=== PATIENT | male | born 1960 | race Caucasian/White ===

== ENCOUNTER → 2020-02-20 09:43 | Outpatient (REF) | payer OTHER, SELFPAY | LOC: ANHLAB 09:43 | PROVIDERS: PCP Family Medicine; Visit Provider Nurse Practitioner | DX: D22.5 Melanocytic nevi of trunk (principal) | CPT/HCPCS: 88305 ==

== ENCOUNTER 2020-03-20 16:03 | Outpatient (CLI) | payer OTHER, SELFPAY ==
--- NOTE | ~2020-03-20 | CT_ITS ---
EXAMINATION: CT soft tissue neck chest w DATE: 03/20/2020 16:39 INDICATION: Melanoma of overlapping sites. TECHNIQUE: Computed tomography (CT) of the neck and chest was performed with 75 mL Omnipaque-350 intr avenous contrast. Automated exposure control and iterative reconstruction technique were employed. Th e dose-length product was 1091.37 mGy-cm. COMPARISON: CT abdomen and pelvis 08/27/2015, chest CT 09/10/2011 FINDINGS: NECK CT: There are mucous retention cyst in right maxillary sinus. There are no pathologically enlarg ed lymph nodes. There is a 10 mm nodule in right thyroid lobe, likely not clinically significant. The re is plaque in the proximal internal carotid arteries with 0% stenosis relative to normal distal art lise lumen diameters. There is mild cervical spondylosis. CHEST CT: Calcified bilateral lung nodules and calcified hilar and mediastinal lymph nodes are consis tent with old granulomatous disease. There is mild atelectasis bilaterally. No pleural effusion. The heart size is normal. There are coronary artery calcifications. No pericardial effusion. Calcificatio ns in the spleen are consistent with old granulomatous disease. There is mild thoracic spondylosis. IMPRESSION: 1. No evidence of metastatic disease. Reviewed, dictated and finalized at location A.
[2020-03-20 16:27] LABS: Estimated Glomerular Filt Rate > 60
== END 2020-03-20 16:04 | disposition home or self-care (01) ==
PROVIDERS: PCP Family Medicine; Visit Provider Internal Medicine Hematology & Oncology
DX: C43.8 Malignant melanoma of overlapping sites of skin (principal)
CPT/HCPCS: 36415; 70491; 71260; Q9967

== ENCOUNTER 2020-07-20 07:01 | Outpatient (CLI) | payer OTHER, SELFPAY ==
[2020-07-20 07:13] LABS: Basophils Absolute Auto 0.04 K/mm3 (0.00-0.10); Basophils Percent Auto 0.7 % (0.0-1.0); Eosinophils Absolute Auto 0.08 K/mm3 (0.02-0.50); Eosinophils Percent Auto 1.3 % (1.0-6.0); Hematocrit 47.3 % (40.0-54.0); Hemoglobin 16.3 g/dL (14.0-18.0); Immature Granulocyte Absolute 0.01 K/mm3 (0.00-0.00); Immature Granulocyte Percent A 0.2 % (0.0-0.0); Lymphocytes Absolute Auto 2.36 K/mm3 (1.10-4.50); Lymphocytes Percent Auto 39.5 % (18.0-42.0); Mean Corpuscular HGB Conc 34.5 g/dL (32.0-36.0); Mean Corpuscular Hemoglobin 28.8 pg (27.0-31.0); Mean Corpuscular Volume 83.6 fL (78.0-102.0); Mean Platelet Volume 11.3 fl (8.7-11.0); Monocytes Absolute Auto 0.39 K/mm3 (0.10-0.90); Monocytes Percent Auto 6.5 % (2.0-11.0); Neutrophils Absolute Auto 3.1 K/mm3 (1.7-7.2); Neutrophils Percent Auto 51.8 % (50.0-70.0); Platelet Count Result 163 K/mm3 (150-420); Red Blood Count 5.66 M/mm3 (4.70-6.10); Red Cell Distribution Width 12.7 % (11.6-14.4)
[2020-07-20 08:21] LABS: Anion Gap 10 mmol/L (8-16); Blood Urea Nitrogen 13 mg/dL (7-18); Calcium 8.9 mg/dL (8.5-10.1); Carbon Dioxide 29 mmol/L (21-32); Chloride 102 mmol/L (98-108); Cholesterol 177 mg/dL (0-200); Estimated Glomerular Filt Rate > 60; Glucose 207 mg/dL (70-99); HDL Direct 20 mg/dL (40-60); LDL Cholesterol Calculated 34 mg/dL (<130); Osmolality Calculated 298 mOsm/kg (285-295); Potassium 3.2 mmol/L (3.5-5.1); Sodium 141 mmol/L (136-145); Triglycerides 613 mg/dL (0-150)
[2020-07-20 08:22] LABS: LDL Cholesterol Direct 54 mg/dL (0-130)
== END 2020-07-20 07:02 | disposition home or self-care (01) ==
LOC: CHSLAB 07:03
PROVIDERS: PCP Family Medicine; Visit Provider Family Medicine
DX: E11.9 Type 2 diabetes mellitus without complications (principal); E78.5 Hyperlipidemia, unspecified; E78.1 Pure hyperglyceridemia; I10 Essential (primary) hypertension; E66.9 Obesity, unspecified
CPT/HCPCS: 36415; 80048; 80061; 83721; 85025

== ENCOUNTER 2020-08-14 17:30 | Outpatient (CLI) | payer OTHER, SELFPAY ==
[2020-08-14 18:02] LABS: Hemoglobin A1C 8.6 % (<5.7)
[2020-08-14 18:10] LABS: Alanine Aminotransferase 45 U/L (16-63); Albumin Level 4.1 g/dL (3.4-5.0); Alkaline Phosphatase 70 U/L (46-116); Anion Gap 8 mmol/L (8-16); Aspartate Amino Transferase 11 U/L (15-37); Bilirubin,Total 0.5 mg/dL (0.00-1.00); Blood Urea Nitrogen 19 mg/dL (7-18); Calcium 9.1 mg/dL (8.5-10.1); Carbon Dioxide 32 mmol/L (21-32); Chloride 100 mmol/L (98-108); Cholesterol 126 mg/dL (0-200); Estimated Glomerular Filt Rate > 60; HDL Direct 22 mg/dL (40-60); LDL Cholesterol Calculated 50 mg/dL (<130); Osmolality Calculated 301 mOsm/kg (285-295); Potassium 3.5 mmol/L (3.5-5.1); Sodium 140 mmol/L (136-145); Total Protein 7.6 g/dL (6.4-8.2)
[2020-08-14 18:13] LABS: Glucose 260 mg/dL (70-99); Triglycerides 272 mg/dL (0-150)
== END 2020-08-14 17:31 | disposition home or self-care (01) ==
PROVIDERS: PCP Family Medicine; Visit Provider Family Medicine
DX: E11.9 Type 2 diabetes mellitus without complications (principal)
CPT/HCPCS: 36415; 80053; 80061; 83036

== ENCOUNTER → 2020-08-20 09:19 | Outpatient (REF) | payer OTHER, SELFPAY | LOC: ANHLAB 09:19 | PROVIDERS: PCP Family Medicine; Visit Provider Nurse Practitioner | DX: D49.2 Neoplasm of unspecified behavior of bone, soft tissue, and skin (principal) | CPT/HCPCS: 88305 ==

== ENCOUNTER 2020-11-13 17:21 | Outpatient (CLI) | payer OTHER, SELFPAY | END 2020-11-13 17:22 | disposition home or self-care (01) | LOC: CHSLAB 17:22 | PROVIDERS: PCP Family Medicine; Visit Provider Family Medicine | DX: E78.5 Hyperlipidemia, unspecified (principal); I10 Essential (primary) hypertension; E11.9 Type 2 diabetes mellitus without complications | CPT/HCPCS: 36415; 83036 ==

== ENCOUNTER → 2021-02-25 09:13 | Outpatient (REF) | payer OTHER, SELFPAY | LOC: ANHLAB 09:13 | PROVIDERS: PCP Family Medicine; Visit Provider Nurse Practitioner | DX: D49.2 Neoplasm of unspecified behavior of bone, soft tissue, and skin (principal) | CPT/HCPCS: 88305 ==

== ENCOUNTER 2021-09-22 21:05 | Emergency (ER) | payer OTHER, SELFPAY ==
--- NOTE | ~2021-09-22 | XR_ITS ---
EXAMINATION: XR chest 1V portable INDICATION: Hypoxia TECHNIQUE: Portable AP chest at 2305 hours COMPARISON: None available FINDINGS: There are airspace opacities of the mid and lower lung zones. No pleural effusion or pneumo thorax is identified. The cardiomediastinal silhouette is normal. IMPRESSION: 1. Airspace opacities of the mid and lower lung zones, likely COVID 19 pneumonia. Reviewed, dictated and finalized at location F. MACEUTICAL SALES IMPRESSION: 1. Airspace opacities of the mid and lower lung zones, likely COVID 19 pneumoni a.
--- NOTE | ~2021-09-22 | CT_ITS ---
EXAMINATION: CTA chest PE protocol DATE: 09/23/2021 00:25 INDICATION: Cough and interpreted the breasts, upper back pain TECHNIQUE: Computed tomography angiography (CTA) of the chest was performed with 100 mL Omnipaque-350 intravenous contrast timed to evaluate the pulmonary arteries. Coronal maximum intensity projection 3D-reconstructions were created by the technologist. The dose-length product (DLP) was 797.35 mGy-cm. Automated exposure control and iterative reconstruction technique were employed. COMPARISON: 04/01/2020 FINDINGS: The pulmonary arteries are well-opacified. No pulmonary embolism is identified. There are p atchy groundglass opacities throughout the lungs. There is no pleural effusion or pneumothorax. The h eart size is normal. Mild mediastinal and bilateral hilar lymphadenopathy is likely reactive. There i s mild thoracic spondylosis. There are surgical clips in the right axilla. IMPRESSION: 1. No pulmonary embolus. 2. Patchy groundglass opacities, consistent with COVID 19 pneumonia. Reviewed, dictated and finalized at location F. [employer]OC[employer]ATE
[2021-09-22 22:52] VITALS: BP 156/81; PULSE 79; RESP 20; TEMP 36.6; O2SAT 95
--- NOTE | 2021-09-22 22:54 | ED.URI ---
HPI - URI/Sore Throat General Chief Complaint: Unspecified Stated Complaint: pain in between shoulder blades Source: patient and RN notes reviewed Mode of arrival: ambulatory Limitations: no limitations History of Present Illness HPI Narrative: patient tested positive for COVID 5 days ago. He actually came out of quarantine today and went to work. In the afternoon he began having chills cough and then pain between his shoulder blades. He did the pulse oximeter at home which has been greater than 90%. He denies any shortness of breath or chest pain. Family who is in the medical field suggested he be evaluated. MD elicited complaint: cough and sore throat Onset (ago): day(s) (5) Consistency: intermittent Severity: moderate Able to tolerate fluids by mouth: Yes Exacerbating factors: nothing Relieving factors: nothing Associated symptoms: chills, cough and other ( Pain between shoulder blades) Treatments prior to arrival: none Related Data Allergies Allergy/AdvReac Type Severity Reaction Status Date / Time Penicillins Allergy Unknown Hives Verified 09/02/21 07:54 Review of Systems Review of Systems: All systems reviewed & are unremarkable except as noted in HPI and below PMFSH Past Medical History Medical History (Updated 09/23/21 @ 00:54 by Mele Santos MD) Diabetes Gout History of bladder cancer History of melanoma 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 2011 and March 2017 HTN (hypertension) Hyperlipidemia Hypertriglyceridemia Obesity, unspecified Family History Family History Mother Diabetes mellitus, Onset Age: 79 Hypertension, Onset Age: 79 Family history of cardiovascular disease, Onset Age: 79 Father Family history of malignant neoplasm of urinary bladder, Onset Age: 82 Social History Social History Smoking status: Never smoker Alcohol intake: current Exam Const: General: healthy appearing, no acute distress and alert Nutritional Appearance: well nourished and obese morbidly obese Orientation/consciousness: patient oriented x3 HENMT: Head: normal to inspection Ears: external ears normal Face and sinus: normal facial exam Eyes: Conjunctivae: conjunctivae normal Pupils: Equal, round and reactive pupils present EOM: EOMs intact bilaterally Cardio: Rate: regular rate Rhythm: regular rhythm GI: GI Palp: Yes Soft to palpation and No Tenderness to palpation present (GI) Auscultation: normal bowel sounds Back/Spine/Pelvis: Cervical Spine: cervical ROM normal Thoracic/Lumbar Spine: thoraco-lumbar ROM normal Skin: General skin exam: normal color Rashes: no rashes Neuro: General: patient oriented x3, moves all extremities, no meningeal signs, no focal motor deficits and CN's II-XI intact bilaterally Speech: normal speech Gait exam (Neuro): Normal gait present Extrem: General: normal to inspection and no clubbing, cyanosis or edema Psych: Appearance: grossly normal Mental Status: mental status grossly normal Affect: normal affect Attitude: cooperative Thought content: Yes Normal thought content present Course Vital Signs Vital signs: Vital Signs Temperature 36.6 C 09/22/21 22:52 Pulse Rate 79 09/22/21 22:52 Respiratory Rate 20 09/22/21 22:52 Blood Pressure 156/81 H 09/22/21 22:52 Pulse Oximetry 95 09/22/21 22:52 Temperature 36.6 C 09/22/21 22:52 Pulse Rate 79 09/22/21 22:57 Respiratory Rate 20 09/22/21 22:52 Blood Pressure 156/81 H 09/22/21 22:52 Pulse Oximetry 95 09/22/21 22:52 MDM - URI/Sore Throat Differential Diagnosis Differential diagnosis: Likely upper respiratory infection, bronchitis and influenza Lab Data Attestation: I reviewed the patient's lab results. Result diagrams: 09/22/21 23:17 09/22/21 23:16 Labs: Lab Results 09/22/21 09/22/21 09/22/21 Range/Units 23:16 23:16 23:17 WBC 4.
[2021-09-22 22:57] VITALS: PULSE 79
[2021-09-22 23:24] LABS: Basophils Absolute Auto 0.01 K/mm3 (0.00-0.10); Basophils Percent Auto 0.2 % (0.0-1.0); Eosinophils Absolute Auto 0.02 K/mm3 (0.02-0.50); Eosinophils Percent Auto 0.5 % (1.0-6.0); Hemoglobin 16.2 g/dL (14.0-18.0); Immature Granulocyte Absolute 0.01 K/mm3 (0.00-0.00); Immature Granulocyte Percent A 0.2 % (0.0-0.0); Immature Platelet Fraction Pct 3.4 % (1.0-7.0); Lymphocytes Absolute Auto 0.94 K/mm3 (1.10-4.50); Lymphocytes Percent Auto 23.4 % (18.0-42.0); Mean Corpuscular HGB Conc 33.8 g/dL (32.0-36.0); Mean Corpuscular Hemoglobin 28.7 pg (27.0-31.0); Mean Corpuscular Volume 85.1 fL (78.0-102.0); Mean Platelet Volume 11.5 fl (8.7-11.0); Monocytes Percent Auto 12.5 % (2.0-11.0); Neutrophils Absolute Auto 2.5 K/mm3 (1.7-7.2); Neutrophils Percent Auto 63.2 % (50.0-70.0); Platelet Count Result 127 K/mm3 (150-420); Red Blood Count 5.64 M/mm3 (4.70-6.10); Red Cell Distribution Width 12.6 % (11.6-14.4)
[2021-09-22 23:34] LABS: D Dimer 0.54 mg/L (0.19-0.50)
[2021-09-22 23:46] LABS: Alanine Aminotransferase 30 U/L (16-63); Albumin Level 3.6 g/dL (3.4-5.0); Alkaline Phosphatase 61 U/L (46-116); Anion Gap 13 mmol/L (8-16); Aspartate Amino Transferase 19 U/L (15-37); Bilirubin,Total 0.5 mg/dL (0.00-1.00); Blood Urea Nitrogen 17 mg/dL (7-18); Calcium 8.7 mg/dL (8.5-10.1); Carbon Dioxide 25 mmol/L (21-32); Chloride 99 mmol/L (98-108); Estimated CRCL calculation 81 ml/min; Estimated Glomerular Filt Rate > 60; Ferritin 837 ng/mL (26-388); Glucose 257 mg/dL (70-99); Magnesium 2.2 mg/dL (1.8-2.4); Osmolality Calculated 294 mOsm/kg (285-295); Potassium 3.3 mmol/L (3.5-5.1); Sodium 137 mmol/L (136-145); Total Protein 7.8 g/dL (6.4-8.2)
[2021-09-22 23:55] LABS: Lactic Acid Reflex 1.4 mmol/L (0.4-2.0)
== END 2021-09-23 01:16 | disposition home or self-care (01) ==
PROVIDERS: Emergency Provider Emergency Medicine; PCP Family Medicine
DX: U07.1 COVID-19 (principal); J12.82 Pneumonia due to coronavirus disease 2019
CPT/HCPCS: 36415; 71045; 71275; 80053; 82728; 83605; 83735; 85025; 85055; 85380; 99283; Q9967

== ENCOUNTER 2021-09-24 15:13 | Outpatient (CLI) | payer OTHER, SELFPAY ==
[2021-09-24 15:26] VITALS: BMI 33.6
[2021-09-24 15:43] VITALS: BP 140/70; PULSE 80; RESP 14; TEMP 36.6; O2SAT 94
[2021-09-24] MEDS: diphenhydrAMINE HCl CAP 25 MG CAPSULE PO (15:44)
[2021-09-24] MEDS: ACETAMINOPHEN 325 MG TABLET 650 MG PO (15:44)
[2021-09-24] MEDS: FAMOTIDINE 20 MG TABLET PO (15:45)
--- NOTE | 2021-09-24 16:04 | PC.NURSE ---
Patient here for IV Bamlanivimab and Etesevimab Infusion due to positive for COVID and meeting high risk criteria. Education on medication given. No concerns voiced. PO pre med and IV infusion administered see NOV.
--- NOTE | 2021-09-24 16:47 | PC.NURSE ---
Tolerated infusion well. No s/sx of reaction noted or reported. Safe exit of hospital.
[2021-09-24 16:48] VITALS: BP 150/82; PULSE 80; RESP 18; TEMP 36.4; O2SAT 96
== END 2021-09-24 15:14 | disposition home or self-care (01) ==
LOC: CHSLAB 15:20 → CHSTREATRM 15:21
PROVIDERS: PCP Family Medicine; Visit Provider Emergency Medicine
DX: U07.1 COVID-19 (principal); I10 Essential (primary) hypertension
CPT/HCPCS: A9270; M0245; Q0245

== ENCOUNTER 2021-10-05 09:29 | Emergency (ER) | payer OTHER, SELFPAY ==
--- NOTE | ~2021-10-05 | CT_ITS ---
EXAMINATION: CT pelvis wo con DATE: 10/05/2021 10:26 INDICATION: Left hip pain. Sciatica. TECHNIQUE: Computed tomography (CT) of the pelvis was performed without intravenous contrast. Automat ed exposure control and iterative reconstruction technique were employed. Exam dose: 731.61 mGy-cm t otal exam DLP. COMPARISON: 08/27/2015 CT abdomen pelvis FINDINGS: No pelvic fracture or bone destruction. The pubic symphysis and sacroiliac joints are intac t. There is moderate osteoarthritis at both hip joints. No fracture, dislocation, avascular necrosis or bone destruction of either hip is evident. Normal appendix. IMPRESSION: Moderate bilateral hip osteoarthritis No pelvic fracture or bone destruction Reviewed, dictated and finalized at Location A. Reviewed, dictated and finalized at location A. [employer] C[employer]AR[employer]TER
[2021-10-05 09:35] VITALS: BP 140/100; PULSE 89; RESP 18; TEMP 36.4; O2SAT 98
--- NOTE | 2021-10-05 10:10 | ED.BACK ---
HPI - Back Pain/Injury General Chief Complaint: Back Pain/Injury Stated Complaint: L sided hip/leg pain Time Seen by Provider: 10/05/21 09:33 Source: patient and RN notes reviewed Mode of arrival: ambulatory Limitations: no limitations History of Present Illness MD elicited complaint: back pain and other (radiating to left lower limb) Pertinent past history: prior back pain Onset (ago): day(s) (1) Timing: progressively worsening Severity: moderate Pain scale (0-10): 7 Similar Symptoms Previously: Yes Quality: dull, aching and spasming Location: lumbar spine and left lower back Radiation: left leg below the knee Exacerbating factors: movement Relieving factors: none Context: turning/twisting Associated symptoms: difficulty walking Related Data Allergies Allergy/AdvReac Type Severity Reaction Status Date / Time Penicillins Allergy Unknown Hives Verified 10/05/21 09:51 Review of Systems Review of Systems: All systems reviewed & are unremarkable except as noted in HPI and below Musculoskeletal: Musculoskeletal: Reports back pain PMFSH Past Medical History Medical History Diabetes Gout History of bladder cancer History of melanoma 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 2011 and March 2017 HTN (hypertension) Hyperlipidemia Hypertriglyceridemia Obesity, unspecified Family History Family History Mother Diabetes mellitus, Onset Age: 79 Hypertension, Onset Age: 79 Family history of cardiovascular disease, Onset Age: 79 Father Family history of malignant neoplasm of urinary bladder, Onset Age: 82 Social History Social History Smoking status: Never smoker Alcohol intake: current Exam Const: General: no acute distress and alert Nutritional Appearance: well nourished Orientation/consciousness: patient oriented x3 Limitations: no limitations HENMT: Head: normal to inspection Ears: external ears normal and TM's normal bilaterally General nose exam: Normal external nose present and Normal nares present Mouth: Yes moist mucous membranes Eyes: Conjunctivae: conjunctivae normal Pupils: Equal, round and reactive pupils present EOM: EOMs intact bilaterally Neck: Neck: normal visual inspection Chest: Chest palpation & inspection: normal inspection of the chest Resp: Effort & Inspection: normal respiratory effort Auscultation: clear to auscultation bilaterally Cardio: Rate: regular rate Rhythm: regular rhythm GI: GI Palp: Yes Soft to palpation and No Tenderness to palpation present (GI) Auscultation: normal bowel sounds : General: Yes bladder normal to palpation and Yes no CVA tenderness Male General Exam: Yes normal external exam Testes: Testes normal Back/Spine/Pelvis: Back: no CVA tenderness Skin: General skin exam: normal color Rashes: no rashes Neuro: General: patient oriented x3, moves all extremities, no meningeal signs, no focal motor deficits and CN's II-XI intact bilaterally Extrem: General: normal to inspection and no pedal edema Other: minimally tender left buttock on deep palpation, full ROM of the left lower limb. Psych: Appearance: grossly normal and well kempt Mental Status: mental status grossly normal Affect: normal affect Attitude: cooperative Thought content: Yes Normal thought content present Course Course Emergency Course: Pt had less pain and was stable in the ED Reevaluation(s) Reevaluation #1: left lower back to left lower limb pain was lessened. Date: 10/05/21 Time: 10:25 Vital Signs Vital signs: Vital Signs Temperature 36.4 C 10/05/21 09:35 Pulse Rate 89 10/05/21 09:35 Respiratory Rate 18 10/05/21 09:35 Blood Pressure 140/100 H 10/05/21 09:35 Pulse Oximetry 98 10/05/21 09:35 Temperature 36.4 C 10/05/21 09:35 Pulse Rate 71 10/05/21 11:12 Respiratory Rate 18 10/05/21
[2021-10-05] MEDS: KETOROLAC (*BKC) 60 MG/2 ML VIAL IM (10:30)
[2021-10-05 11:12] VITALS: BP 141/76; PULSE 71; RESP 18; O2SAT 96
== END 2021-10-05 11:05 | disposition home or self-care (01) ==
PROVIDERS: Emergency Provider Emergency Medicine; PCP Family Medicine
DX: M54.32 Sciatica, left side (principal)
CPT/HCPCS: 72192; 96372; 99283; 99284; J1885

== ENCOUNTER 2021-10-07 10:33 | Outpatient (RCR) | payer OTHER, SELFPAY ==
--- NOTE | 2021-10-07 11:48 | PTOPEVAL ---
Thank you for referring Ketan Stanton to [facility].? The patient is scheduled to be seen for therapy? ____x/week for ___ weeks. Please review, sign, date and return this plan of care STEPHANIE. I agree with and certify that the following plan of care is medically necessary. Referring Physician Date Admitting Provider: Attending Provider: Alfredo Vicente DO Referring Provider: *PT Outpatient Evaluation Start: 10/07/21 10:46 Freq: Status: Active Protocol: Document 10/07/21 10:46 ACR (Rec: 10/07/21 11:47 ACR [id number]) Therapy Assessment Status Assessment Status Assessment Status Evaluation Outpatient Past Medical History Cardiovascular History Hx Hypercholesterolemia Yes Endocrine History Hx Diabetes Yes Other History Hx Cancer Yes: bladder tumor Evaluation Information Problem Diagnosis dorsalgia Onset 09/23/20 Subjective Information Patient states that he had Query Text:As Reported By Patient/ COVID-19 3 weeks ago and the Family MD told him this could be the cause of the back pain. 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 He states that he went to the ED and got a shot in the buttock region and then went to see his MD and changed his medication around which did not help much. He states that laying down, walking, and standing are okay, but sitting is awful for him. Patient states that he has difficulty with steps because anytime he puts weight through the LLE it causes pain. The patient states that the pain is in the L side, into the hip and and down the back of the thigh and occasionally to the foot. Patient states that when he drives he has stop and stretch his leg if in the car for more than 10-15 minutes. Patient state that his goal for therapy is to get back to work. Prior Level of Function Activity Level (Last 3 Months)
--- NOTE | 2021-10-13 10:46 | PTOPEVAL ---
Thank you for referring Ketan Stanton to [facility][Note 3[facility]? The patient is scheduled to be seen for therapy? ____x/week for ___ weeks. Please review, sign, date and return this plan of care STEPHANIE. I agree with and certify that the following plan of care is medically necessary. Referring Physician Date Admitting Provider: Attending Provider: Alfredo Vicente DO Referring Provider: *PT Outpatient Evaluation Start: 10/07/21 10:46 Freq: Status: Active Protocol: Document 10/13/21 09:09 ACR (Rec: 10/13/21 10:46 ACR [id number]) Therapy Assessment Status Assessment Status Assessment Status Progress Outpatient Past Medical History Cardiovascular History Hx Hypercholesterolemia Yes Endocrine History Hx Diabetes Yes Other History Hx Cancer Yes: bladder tumor Evaluation Information Problem Diagnosis dorsalgia, dizziness Onset 09/23/20 Subjective Information Patient presents to therapy Query Text:As Reported By Patient/ with a new order for dizziness Family after having vertigo like symptoms over the weekend. He states he got up Wednesday morning and was really dizzy and got sick. He states he looked up what to do and did a maneuver which helped him a little bit, but he really only gets relief when he lays on his R side. He states that he thinks it could be from his COVID infusion on 09/24/21. He states that he really wants to get back to work, but has the week off to figure out his dizziness. Pain Assessment Timing of Pain Assessment Timing of Pain Assessment Pre-Treatment Pain Scale Pain Scale Used Numeric (1 - 10) Self Report Pain Assessment Left Hip(s) Reported Pain Level 8 Pain Score Pain Score 8: Self Report Interventions Used Interventions Used By Clinicians Activity or ADL's,Exercise Palpation Assessment Palpation Palpation Performed [place] on patient where he had a positive L and negative R. The patient was then educated on the Ranjith Maneuver to address this. General Exercise General Exercises Exercise Description - Ranjith maneuver for L ear x 3 Query Text:Record Sets, Reps, , billy
--- NOTE | 2021-10-24 10:01 | PTOPEVAL ---
Thank you for referring Ketan Stanton to [facility].? The patient is scheduled to be seen for therapy? ____x/week for ___ weeks. Please review, sign, date and return this plan of care STEPHANIE. I agree with and certify that the following plan of care is medically necessary. Referring Physician Date Admitting Provider: Attending Provider: Alfredo Vicente DO Referring Provider: *PT Outpatient Evaluation Start: 10/07/21 10:46 Freq: Status: Active Protocol: Document 10/24/21 08:44 ACR (Rec: 10/24/21 09:25 ACR [id number]) Therapy Assessment Status Assessment Status Assessment Status Progress Outpatient Past Medical History Cardiovascular History Hx Hypercholesterolemia Yes Endocrine History Hx Diabetes Yes Other History Hx Cancer Yes: bladder tumor Evaluation Information Problem Diagnosis dorsalgia Onset 09/23/20 Pain Assessment Timing of Pain Assessment Timing of Pain Assessment Assessment Pain Scale Pain Scale Used Numeric (1 - 10) Self Report Pain Assessment Left Hip(s) Reported Pain Level 6 Greatest Pain Intensity 8 Pain Score Pain Score 6: Self Report Interventions Used Interventions Used By Clinicians Electrical Stimulation, Exercise,Heat Lower Extremity Muscle Strength Testing Hip Strength Right Hip Flexion Strength 5 Normal Hip Abduction Strength 5 Normal Left Hip Flexion Strength 4+ Good + Hip Abduction Strength 4 Good Knee Strength Right Knee Flexion Strength 5 Normal Knee Extension Strength 5 Normal Left Knee Flexion Strength 5 Normal Knee Extension Strength 4+ Good + Muscle Length Testing Muscle Length Testing Piriformis w/Hip Flexion >90 Degrees (R) Moderate Tightness,(L) Severe Tightness Left Hamstring Length 45 Query Text:(90 - 90 Position) Right Hamstring Length 40 Query Text:(90 - 90 Position) Special Test-Spine Lumbar Spine Special Tests Crossed Straight Leg Raise Test Negative Right,Positive Left Straight Leg Raise Test Negative Right,Positive Left Slump Test Negative Right,Positive Left Gait Assessment Gait Assessment Additional Ambulation Comments Patient ambulates into the clinic General Exercise General Exercises Exercise Description -PROM HS/piriformis x 8 min Query Text:Record Sets, Reps, -heel/toe raises x 20 ea miki Resistance, and Position -standing hip abd/ext x 25 ea - squats x 20 -standing birddog on wall 5 sec x 10 ea miki
== END 2021-10-24 10:34 | disposition home or self-care (01) ==
LOC: CHSPT 10:33
PROVIDERS: PCP Family Medicine; Visit Provider Family Medicine
DX: M54.9 Dorsalgia, unspecified (principal); R42 Dizziness and giddiness
CPT/HCPCS: 97012; 97014; 97110; 97140; 97161; G0283

== ENCOUNTER 2021-10-14 08:25 | Outpatient (CLI) | payer OTHER, SELFPAY ==
--- NOTE | ~2021-10-14 | MR_ITS ---
. EXAMINATION: MR lumbar spine wo con DATE: 10/14/2021 09:18 INDICATION: Low back pain. Left-sided sciatica. TECHNIQUE: Magnetic resonance imaging (MRI) of the lumbar spine was performed without intravenous con trast. Sequences included sagittal T2-weighted FSE, sagittal T2-weighted FS FSE, sagittal T1-weighted FSE, and axial T2-weighted FSE. COMPARISON: Chest CT 09/23/2021, CT abdomen and pelvis 08/27/2015 FINDINGS: There are 12 pairs of ribs. Bone alignment is normal. There are hemangiomas in L1 and L4 ve rtebral bodies. Vertebral body heights are normal. There is mildly decreased disc height at L3-L4, L4 -L5, and L5-S1. The distal spinal cord signal intensity is normal. The conus medullaris is at T12-L1. There are cysts in the kidneys measuring up to 3.8 cm on the right. The following disc levels are sp ecifically discussed: L1-L2: The disc does not extend beyond the endplate margin. There is mild bilateral facet joint osteo arthritis. There is no neural foraminal stenosis. There is no central canal stenosis. L2-L3: The disc does not extend beyond the endplate margin. There is mild bilateral facet joint osteo arthritis. There is no neural foraminal stenosis. There is no central canal stenosis. L3-L4: The disc is bulging. There is moderate bilateral facet joint osteoarthritis. There is mild rig ht neural foraminal stenosis. There is mild central canal stenosis. L4-L5: The disc is bulging and has an annular fissure. There is mild right and moderate left facet brunilda int osteoarthritis. There is moderate bilateral neural foraminal stenosis. There is moderate central canal stenosis with asymmetry stenosis of the lateral recesses, left worse than right. L5-S1: The disc is bulging with superimposed left subarticular zone extrusion with mass effect on lef t S1 nerve root in left lateral recess. There is moderate bilateral facet joint osteoarthritis. There is mild right and moderate left neural foraminal stenosis. There is mild central canal stenosis at t he midline. There is severe stenosis of left lateral recess. IMPRESSION: 1. Moderate lumbar spondylosis. Of note, an extrusion at L5-S1 exerts mass effect on left S1 nerve ro ot. Reviewed, dictated and finalized at location A. ING ENGINEER IMPRESSION: 1. Moderate lumbar spondylosis. Of note, an extrusion at L5-S1 exerts mass effe ct on left S1 nerve root.
== END 2021-10-14 08:26 | disposition home or self-care (01) ==
LOC: CHSIMG 08:26
PROVIDERS: PCP Family Medicine; Visit Provider Family Medicine
DX: M54.9 Dorsalgia, unspecified (principal)
CPT/HCPCS: 72148

== ENCOUNTER → 2022-03-03 08:38 | Outpatient (REF) | payer OTHER, SELFPAY | LOC: ANHLAB 08:38 | PROVIDERS: PCP Family Medicine; Visit Provider Nurse Practitioner | DX: D49.2 Neoplasm of unspecified behavior of bone, soft tissue, and skin (principal) | CPT/HCPCS: 88305 ==

== ENCOUNTER 2022-09-08 12:14 | Outpatient (NON) | payer OTHER, SELFPAY | END 2022-09-08 12:15 | disposition home or self-care (01) | LOC: ANHLAB 09-09 12:17 | PROVIDERS: PCP Family Medicine; Visit Provider Nurse Practitioner | DX: D22.5 Melanocytic nevi of trunk (principal) | CPT/HCPCS: 88305 ==

== ENCOUNTER 2023-01-14 09:01 | Outpatient (CLI) | payer OTHER, SELFPAY ==
[2023-01-14 09:12] LABS: Hemoglobin 16.7 g/dL (14.0-18.0); Mean Corpuscular HGB Conc 34.1 g/dL (32.0-36.0); Mean Corpuscular Hemoglobin 29.3 pg (27.0-31.0); Mean Platelet Volume 11.4 fl (8.7-11.0); Platelet Count Result 165 K/mm3 (150-420); Red Cell Distribution Width 13.2 % (11.6-14.4); White Blood Count 5.4 K/mm3 (4.8-10.8)
[2023-01-14 09:28] LABS: Creatinine Urine 63.69 mg/dL (40-278); MALB Creatinine Ratio 23.7 mg/g (0-30); Microalbumin Urine Random 15.1 mg/L
[2023-01-14 09:32] LABS: Hemoglobin A1C 7.7 % (<5.7)
[2023-01-14 09:48] LABS: Alanine Aminotransferase 41 U/L (16-63); Albumin Level 3.8 g/dL (3.4-5.0); Alkaline Phosphatase 78 U/L (46-116); Anion Gap 10 mmol/L (8-16); Aspartate Amino Transferase 21 U/L (15-37); Bilirubin,Total 0.6 mg/dL (0.00-1.00); Blood Urea Nitrogen 16 mg/dL (7-18); Calcium 8.8 mg/dL (8.5-10.1); Carbon Dioxide 27 mmol/L (21-32); Chloride 106 mmol/L (98-108); Cholesterol 129 mg/dL (0-200); Estimated Glomerular Filt Rate > 60; Glucose 152 mg/dL (70-99); HDL Direct 26 mg/dL (40-60); LDL Cholesterol Calculated 69 mg/dL (<130); Osmolality Calculated 300 mOsm/kg (285-295); Potassium 3.9 mmol/L (3.5-5.1); Sodium 143 mmol/L (136-145); Total Protein 7.6 g/dL (6.4-8.2); Triglycerides 170 mg/dL (0-150)
== END 2023-01-14 09:02 | disposition home or self-care (01) ==
LOC: CHSLAB 09:02
PROVIDERS: PCP Family Medicine; Visit Provider Family Medicine
DX: E11.9 Type 2 diabetes mellitus without complications (principal); I10 Essential (primary) hypertension
CPT/HCPCS: 36415; 80053; 80061; 82043; 83036; 85027

== ENCOUNTER 2023-03-23 13:06 | Outpatient (NON) | payer OTHER, SELFPAY | END 2023-03-23 13:07 | disposition home or self-care (01) | LOC: ANHLAB 03-24 13:08 | PROVIDERS: PCP Family Medicine; Visit Provider Nurse Practitioner | DX: D49.2 Neoplasm of unspecified behavior of bone, soft tissue, and skin (principal) | CPT/HCPCS: 88305 ==

== ENCOUNTER 2024-08-21 08:02 | Outpatient (CLI) | payer OTHER, SELFPAY ==
[2024-08-21 08:22] LABS: Basophils Absolute Auto 0.02 K/mm3 (0.00-0.10); Basophils Percent Auto 0.4 % (0.0-1.0); Eosinophils Absolute Auto 0.15 K/mm3 (0.02-0.50); Eosinophils Percent Auto 2.9 % (1.0-6.0); Hemoglobin 16.1 g/dL (14.0-18.0); Immature Granulocyte Absolute 0.01 K/mm3 (0.00-0.00); Immature Granulocyte Percent A 0.2 % (0.0-0.0); Lymphocytes Absolute Auto 1.63 K/mm3 (1.10-4.50); Mean Corpuscular HGB Conc 34.3 g/dL (32-36); Mean Corpuscular Hemoglobin 29.1 pg (27.0-31.0); Mean Platelet Volume 11.2 fl (8.7-11.0); Monocytes Absolute Auto 0.39 K/mm3 (0.10-0.90); Monocytes Percent Auto 7.7 % (2.0-11.0); Neutrophils Absolute Auto 2.89 K/mm3 (1.70-7.20); Neutrophils Percent Auto 56.8 % (50.0-70.0); Platelet Count Result 175 K/mm3 (150-420); Red Blood Count 5.53 M/mm3 (4.70-6.10); Red Cell Distribution Width 13.3 % (11.6-14.4); White Blood Count 5.1 K/mm3 (4.8-10.8)
[2024-08-21 08:30] LABS: Hemoglobin A1C 9.4 % (<5.7)
[2024-08-21 08:32] LABS: Creatinine Urine 70.39 mg/dL (40-278); MALB Creatinine Ratio 49.7 mg/g (0-30)
[2024-08-21 08:58] LABS: Alanine Aminotransferase 28 U/L (16-63); Albumin Level 3.8 g/dL (3.4-5.0); Alkaline Phosphatase 75 U/L (46-116); Anion Gap 7 mmol/L (4-12); Aspartate Amino Transferase 19 U/L (15-37); Bilirubin,Total 0.6 mg/dL (0.00-1.00); Blood Urea Nitrogen 13 mg/dL (7-18); Carbon Dioxide 28 mmol/L (21-32); Chloride 106 mmol/L (98-108); Cholesterol 136 mg/dL (0-200); Estimated Glomerular Filt Rate > 60; Glucose 204 mg/dL (70-99); HDL Direct 29 mg/dL (40-60); LDL Cholesterol Calculated 77 mg/dL (<130); Osmolality Calculated 298 mOsm/kg (285-295); Potassium 3.9 mmol/L (3.5-5.1); Sodium 141 mmol/L (136-145); Total Protein 6.8 g/dL (6.4-8.2); Triglycerides 150 mg/dL (0-150); Uric Acid 2.7 mg/dL (3.5-7.2)
== END 2024-08-21 08:03 | disposition home or self-care (01) ==
PROVIDERS: PCP Family Medicine; Visit Provider Family Medicine
DX: I10 Essential (primary) hypertension (principal); E11.9 Type 2 diabetes mellitus without complications; M10.9 Gout, unspecified
CPT/HCPCS: 36415; 80053; 80061; 82043; 83036; 84550; 85025

== ENCOUNTER 2024-09-25 01:05 | Day surgery (SDC) | payer OTHER, SELFPAY ==
[2024-08-31 15:01] VITALS: BMI 32.5
[2024-09-25 08:02] VITALS: BP 154/87; PULSE 56; RESP 18; TEMP 36.1; O2SAT 100
[2024-09-25] MEDS: LACTATED RINGERS 1,000 ML 150 ML IV CONT (08:12)
[2024-09-25 08:20] LABS: Glucose Point of Care 149 mg/dl (65-105)
--- NOTE | 2024-09-25 09:04 | PM.IMHP ---
H&P: HPI History of Present Illness Date/Time: 09/25/24 09:04 Chief Complaint: screening for colorectal cancer Narrative: this is a 64-year-old man who presents for colonoscopy. His last colonoscopy was 10 years ago and was normal. He denies any family history of colon cancer. He denies any hematochezia or melena. Review of Systems Review of Systems: All systems reviewed & are unremarkable except as noted in HPI and below Constitutional: Constitutional: Denies chills, Denies fever(s), Denies headache(s) and Denies weight loss Eyes: Eyes: Denies change in vision ENT: Denies dizziness, Denies headache(s), Denies neck mass and Denies throat swelling Cardiovascular: Cardiovascular: Denies chest pain, Denies lightheadedness and Denies dyspnea Respiratory: Respiratory: Denies cough, Denies dyspnea and Denies wheezing Gastrointestinal: Gastrointestinal: Denies abdominal pain, Denies change in bowel habits, Denies nausea and Denies vomiting Genitourinary: Genitourinary: Denies hematuria and Denies dysuria Musculoskeletal: Musculoskeletal: Reports as per HPI Integumentary/Breasts: Skin/Breast: Reports as per HPI Neurologic: Denies dizziness and Denies headache(s) Allergic/Immunologic: Allergic/Immunologic: Denies throat swelling and Denies wheezing PMFSH Past Medical History Medical History History of bladder cancer Hyperlipidemia Obesity, unspecified Gout HTN (hypertension) History of melanoma 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 2011 and March 2017 Surgical History Surgical History H/O: knee surgery Previous back surgery Family History Family History Mother Diabetes mellitus, Onset Age: 79 Hypertension, Onset Age: 79 Family history of cardiovascular disease, Onset Age: 79 Father Family history of malignant neoplasm of urinary bladder, Onset Age: 82 Social History Social History Smoking status: Never smoker Alcohol intake: current Substance use type: does not use Living arrangements: with family Spiritual care concerns: No Meds Home Medications and Allergies Home Medications ?Medication ?Instructions ?Recorded ?Confirmed ?Type blood-glucose meter #1 ea 05/06/20 08/31/24 Rx semaglutide 2 mg/dose (8 mg/3 mL) 2 mg (0.75 mL) subcut WEEKLY #3 mL 05/26/24 09/25/24 Rx subcutaneous pen injector (Ozempic) allopurinol 300 mg tablet See Rx Instructions .Route 08/14/24 09/25/24 Rx .COMPLEX #90 tabs amlodipine 10 mg tablet See Rx Instructions .Route 08/14/24 09/25/24 Rx .COMPLEX #90 tabs atorvastatin 40 mg tablet See Rx Instructions .Route 08/14/24 09/25/24 Rx .COMPLEX #14 tabs dapagliflozin propanediol 5 mg See Rx Instructions .Route 08/14/24 09/25/24 Rx tablet (Farxiga) .COMPLEX #90 tabs fenofibrate nanocrystallized 145 See Rx Instructions .Route 08/14/24 09/25/24 Rx mg tablet .COMPLEX #90 tabs lisinopril 20 mg tablet See Rx Instructions .Route 08/14/24 09/25/24 Rx .COMPLEX #90 tabs omega-3 acid ethyl esters 1 gram See Rx Instructions .Route 08/14/24 09/25/24 Rx capsule .COMPLEX #90 caps potassium chloride 20 mEq See Rx Instructions .Route 08/14/24 09/25/24 Rx tablet,extended release .COMPLEX #90 tabs sitagliptin phos 100 mg-metformin See Rx Instructions .Route 08/14/24 09/25/24 Rx ER 1,000 mg tablet,extend rel 24h .COMPLEX #90 tabs mp (Janumet XR) blood sugar diagnostic (Blood #100 ea 08/25/24 08/31/24 Rx Glucose Test strips) blood sugar diagnostic (OneTouch #100 ea 08/25/24 08/31/24 Rx Verio test strips) insulin glargine 100 unit/mL (3 10 unit (0.1 mL) subcut QPM #15 mL 08/25/24 09/25/24 Rx mL) subcutaneous pen (Lantus Solostar U-100 Insulin) lancets #100 ea 08/25/24 08/31/24 Rx Allergies Allergy/AdvReac Type Severity Reaction Status Date / Time Penicillins Allergy Unknown Hives Verified 09/25/24 08:00 Vital Signs Vital Signs - 24 hr 09/25/24 08:02 Temperature 97 F L Pulse Rate 56 L Respiratory Rate 18 Blood Pressure 154/87 H Pulse Oximetry 100 Oxygen Delivery Room Air Exam Const: General: no acute distress and alert Orientation/consciousness: patient oriented x3 HENMT: Head: normocephalic and atraumatic Ears: hearing grossly normal bilaterally Face/Nose/Sinus: Normal nares present Mouth: Yes Normal oral and palatal mucosa present Eyes: Periorbital: periorbital findings normal Sclera: sclerae normal EOM: EOMs intact bilaterally Neck: Neck: normal visual inspection, no lymphadenopathy and trachea midline Chest: Chest palpation & inspection: normal inspection of the chest Resp: Effort & Inspection: normal respiratory effort Auscultation: clear to auscultation bilaterally Cardio: Jugular venous distension: no JVD Rate: regular rate Rhythm: regular rhythm Heart sounds: S1 normal heart sound present and S2 normal heart sound present Peripheral pulses: Peripheral pulses 2+ throughout GI: Inspection: normal to inspection GI Palp: Yes Soft to palpation, No Tenderness to palpation present (GI), No Guarding due to palpation present (GI) and No Rebound tenderness present Percussion: Yes normal to percussion Auscultation: normal bowel sounds : General: Yes no CVA tenderness Back/Spine/Pelvis: Back: no CVA tenderness Neuro: General: patient oriented x3, no focal motor deficits and CN's II-XI intact bilaterally Cognition (Neuro): normal cognition Speech: normal speech Motor exam (neuro): 5/5 motor strength present throughout Extrem: General: capillary refill normal and no clubbing, cyanosis or edema Assessment and Plan Assessment and plan (1) Screening for colorectal cancer: Code(s): Z12.11 - Encounter for screening for malignant neoplasm of colon; Z12.12 - Encounter for screening for malignant neoplasm of rectum Status: Acute Assessment and Plan: I have recommended colonoscopy. I have discussed the procedure, risks, benefits, and alternatives. Questions were answered. Patient is agreeable to proceed.
--- NOTE | 2024-09-25 09:10 | WPDANESEPPF ---
Anes - Initial Pre Proc Eval Procedure: Operation Date: 09/25/24 09:30 Proposed Procedures p Screening Colonoscopy - Chance Markham DO Date/Time: 09/25/24 09:10 Surgeon: Chance Markham DO Pre Op Diagnosis: Screening for malignant neoplasm of colon Patient Data Age: 64 Gender: M Height: 1.83 m Weight: 110.5 kg Last Vital Signs Temp 97 F L 09/25/24 08:02 Pulse 56 L 09/25/24 08:02 Resp 18 09/25/24 08:02 BP 154/87 H 09/25/24 08:02 Pulse Ox 100 09/25/24 08:02 O2 Del Method Room Air 09/25/24 08:02 Allergies Allergy/AdvReac Type Severity Reaction Status Date / Time Penicillins Allergy Unknown Hives Verified 09/25/24 08:00 Home Medications ?Medication ?Instructions ?Recorded ?Confirmed ?Type blood-glucose meter #1 ea 05/06/20 08/31/24 Rx semaglutide 2 mg/dose (8 mg/3 mL) 2 mg (0.75 mL) subcut WEEKLY #3 mL 05/26/24 09/25/24 Rx subcutaneous pen injector (Ozempic) allopurinol 300 mg tablet See Rx Instructions .Route 08/14/24 09/25/24 Rx .COMPLEX #90 tabs amlodipine 10 mg tablet See Rx Instructions .Route 08/14/24 09/25/24 Rx .COMPLEX #90 tabs atorvastatin 40 mg tablet See Rx Instructions .Route 08/14/24 09/25/24 Rx .COMPLEX #14 tabs dapagliflozin propanediol 5 mg See Rx Instructions .Route 08/14/24 09/25/24 Rx tablet (Farxiga) .COMPLEX #90 tabs fenofibrate nanocrystallized 145 See Rx Instructions .Route 08/14/24 09/25/24 Rx mg tablet .COMPLEX #90 tabs lisinopril 20 mg tablet See Rx Instructions .Route 08/14/24 09/25/24 Rx .COMPLEX #90 tabs omega-3 acid ethyl esters 1 gram See Rx Instructions .Route 08/14/24 09/25/24 Rx capsule .COMPLEX #90 caps potassium chloride 20 mEq See Rx Instructions .Route 08/14/24 09/25/24 Rx tablet,extended release .COMPLEX #90 tabs sitagliptin phos 100 mg-metformin See Rx Instructions .Route 08/14/24 09/25/24 Rx ER 1,000 mg tablet,extend rel 24h .COMPLEX #90 tabs mp (Janumet XR) blood sugar diagnostic (Blood #100 ea 08/25/24 08/31/24 Rx Glucose Test strips) blood sugar diagnostic (OneTouch #100 ea 08/25/24 08/31/24 Rx Verio test strips) insulin glargine 100 unit/mL (3 10 unit (0.1 mL) subcut QPM #15 mL 08/25/24 09/25/24 Rx mL) subcutaneous pen (Lantus Solostar U-100 Insulin) lancets #100 ea 08/25/24 08/31/24 Rx Laboratory Tests 09/25/24 08:14 POC Capillary Glucose 149 H mg/dl (65-105) Patient hx anesthesia problems: none Family hx anesthesia problems: none Results Review: All pre-operative results and documents have been reviewed as part of the pre-operative evaluation. [facility] Past Medical History Medical History History of bladder cancer Hyperlipidemia Obesity, unspecified Gout HTN (hypertension) History of melanoma 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 2011 and March 2017 Surgical History Surgical History H/O: knee surgery Previous back surgery Family History Family History Mother Diabetes mellitus, Onset Age: 79 Hypertension, Onset Age: 79 Family history of cardiovascular disease, Onset Age: 79 Father Family history of malignant neoplasm of urinary bladder, Onset Age: 82 Social History Social History Smoking status: Never smoker Alcohol intake: current Substance use type: does not use Living arrangements: with family Spiritual care concerns: No Anes - Eval Final PreProcedure Day of Procedure 09/25/24 09:10 Patient weight: obese Heart: regular rate and rhythm Lungs: clear to auscultation Airway: Mallampati scale class II Neurological: alert and oriented Last oral intake: >/= 8 hours ASA classification: III Emergent: no Anesthetic plan: proceed Anesthesia type and monitoring: general GIVS and standard monitoring Results Review: All pre-operative results and documents have been reviewed as part of the pre-operative evaluation. Informed Consent: The patient's anesthetic plan and its attendant risks and benefits were discussed with the patient/family/POA. Questions were solicited and answers provided to the satisfaction of the patient/family/POA.
[2024-09-25 09:34] VITALS: BP 118/74; PULSE 66; RESP 16; O2SAT 97
[2024-09-25 09:44] VITALS: BP 124/82; PULSE 57; RESP 20; O2SAT 96
[2024-09-25 09:54] VITALS: BP 137/83; PULSE 54; RESP 15; O2SAT 98
[2024-09-25 10:07] LABS: Glucose Point of Care 142 mg/dl (65-105)
== END 2024-09-25 10:07 | disposition home or self-care (01) ==
PROVIDERS: PCP Family Medicine; Visit Provider Surgery
PROC: 0DJD8ZZ Inspection of Lower Intestinal Tract, Via Natural or Artificial Opening Endoscopic (ICD-10-PCS; CPT 45378; principal; 2024-09-25 09:30)
DX: Z12.11 Encounter for screening for malignant neoplasm of colon (principal); K57.30 Diverticulosis of large intestine without perforation or abscess without bleeding; E78.5 Hyperlipidemia, unspecified; I10 Essential (primary) hypertension; E66.9 Obesity, unspecified; Z68.33 Body mass index [BMI] 33.0-33.9, adult; Z79.85 Long-term (current) use of injectable non-insulin antidiabetic drugs; Z79.84 Long term (current) use of oral hypoglycemic drugs; Z79.4 Long term (current) use of insulin; Z98.890 Other specified postprocedural states; Z98.1 Arthrodesis status; Z85.51 Personal history of malignant neoplasm of bladder; Z85.820 Personal history of malignant melanoma of skin; Z80.52 Family history of malignant neoplasm of bladder; Z82.49 Family history of ischemic heart disease and other diseases of the circulatory system
CPT/HCPCS: 45378; 82948; J2003; J2704; J7120

== ENCOUNTER 2025-05-23 07:25 | Outpatient (CLI) | payer MEDICARE, SELFPAY ==
[2025-05-23 07:46] LABS: Hematocrit 48.9 % (37.0-46.0); Hemoglobin 16.3 g/dL (12.4-15.3); Immature Granulocyte Percent A 0.4 % (0.0-0.0); Lymphocytes Absolute Auto 1.84 K/mm3 (1.10-4.50); Mean Corpuscular HGB Conc 33.3 g/dL (32-36); Mean Corpuscular Hemoglobin 28.8 pg (27.0-31.0); Mean Corpuscular Volume 86.5 fL (78.0-102.0); Nucleated Red Blood Cells Absolute Auto 0.00 K/mm3 (0.00-0.00); Nucleated Red Blood Cells Perc 0.0 % (0-0.0); Platelet Count Result 169 K/mm3 (150-420); Red Blood Count 5.65 M/mm3 (4.70-6.10); White Blood Count 7.8 K/mm3 (4.8-10.8)
[2025-05-23 07:58] LABS: Hemoglobin A1C 7.7 % (<5.7)
[2025-05-23 08:00] LABS: MALB Creatinine Ratio 34.4 mg/g (0-30)
[2025-05-23 08:14] LABS: Alanine Aminotransferase 28 U/L (6-50); Albumin Level 4.4 g/dL (3.5-5.1); Alkaline Phosphatase 63 U/L (38-126); Anion Gap 12 mmol/L (4-12); Aspartate Amino Transferase 25 U/L (17-59); Bilirubin,Total 1.0 mg/dL (0.2-1.3); Blood Urea Nitrogen 23 mg/dL (9-20); Calcium 9.4 mg/dL (8.4-10.2); Carbon Dioxide 24 mmol/L (22-30); Chloride 107 mmol/L (98-107); Cholesterol 138 mg/dL (0-200); Estimated Glomerular Filt Rate > 60; Glucose 143 mg/dL (65-110); HDL Direct 32 mg/dL; Osmolality Calculated 301 mOsm/kg (285-295); Potassium 4.0 mmol/L (3.4-5.0); Sodium 143 mmol/L (137-145); Total Protein 7.3 g/dL (6.3-8.2); Triglycerides 139 mg/dL (<150); Uric Acid 3.4 mg/dL (3.5-8.5)
[2025-05-23 08:43] LABS: Prostate Specific Antigen 0.4 ng/mL (< OR = 4.0)
[2025-05-23 09:02] LABS: Vitamin B12 399.0 pg/mL (239-931)
== END 2025-05-23 07:26 | disposition home or self-care (01) ==
PROVIDERS: PCP Family Medicine; Visit Provider Family Medicine
DX: E66.9 Obesity, unspecified (principal); I10 Essential (primary) hypertension; E78.5 Hyperlipidemia, unspecified; E11.9 Type 2 diabetes mellitus without complications; H81.10 Benign paroxysmal vertigo, unspecified ear; M10.9 Gout, unspecified; Z12.5 Encounter for screening for malignant neoplasm of prostate; Z68.33 Body mass index [BMI] 33.0-33.9, adult
CPT/HCPCS: 36415; 80053; 80061; 82043; 82306; 82607; 83036; 84153; 84550; 85025; G0103